=== PATIENT | female | born 1955 | race Caucasian/White ===

== ENCOUNTER 2021-08-20 13:25 | Emergency (ER) | payer OTHER ==
[~2021-08-20] VITALS: Ht 160 cm; Wt 49.9 kg
--- NOTE | 2021-08-21 17:20 | EKG ---
[facility] [address] [facility] [place], [place] [address] Signed Normal sinus rhythm Normal ECG No previous ECGs available Confirmed by CHALO MEDEL MD ([id number]) on 08/21/2021 5:20:23 PM Electronically Signed By: CHALO MEDEL MD 08/21/21 1720 PATIENT NAME: AV LEES Electrocardiogram DATE OF : 59 PHYSICIAN: CHALO MEDEL MD REPORT #: [id number] REPORT IS CONFIDENTIAL AND NOT TO BE RELEASED WITHOUT AUTHORIZATION
== END 2021-08-20 15:27 | disposition home or self-care (01) ==
LOC: ED 13:25
DX: K29.70 Gastritis, unspecified, without bleeding (principal); R07.89 Other chest pain
CPT/HCPCS: 36415; 71045; 80053; 83690; 84484; 85025; 93005; 93010; 99285-25

== ENCOUNTER 2024-02-24 07:20 | Day surgery (SDC) | payer MEDICARE, OTHER ==
[2024-02-20 12:58] VITALS: BP 119/80
[~2024-02-24] VITALS: Ht 160 cm; Wt 53.6 kg
[~2024-02-24 07:20] MED LIST: CEFAZOLIN SODIUM 2 GM/20 ML SYR IV SCH; HEParin SOD (PORCINE) 5,000 UNIT/0.5 ML SYR SUB-Q SCH; HYDROCODON-ACE1 EA10 PO; IBLOOD GLUCOSE TEST STRIP 1 EA TEST VI PRN; LACTATED RINGER'S 1,000 ML IV SCH; LIDOCAINE HCL 1% 5 ML SDV INJ ONE
[2024-02-24 07:40] VITALS: BP 112/82
[2024-02-24] MEDS ORDERED: AREDS EYE VITAMIN PO (07:45)
[2024-02-24] MEDS ORDERED: KETOROLAC TROMETHAMINE 30 MG/ML VIAL ONE (08:21)
[2024-02-24] MEDS ORDERED: propofoL 200 MG/20 ML VIAL ONE (08:21)
[2024-02-24] MEDS ORDERED: ondansetron HCL 4 MG/2 ML VIAL ONE (08:21)
[2024-02-24] MEDS ORDERED: LIDOCAINE HCL 2% 5 ML SDV ONE (08:21)
[2024-02-24] MEDS ORDERED: DEXAMETHASONE SOD PHOS 4 MG/ML VIAL ONE (08:21)
[2024-02-24] MEDS ORDERED: fentaNYL citrate 100 MCG/2 ML VIAL ONE ×2 (09:47→10:52)
[2024-02-24] MEDS ORDERED: MIDAZOLAM HCL 2 MG/2 ML VIAL ONE (09:47)
[2024-02-24] MEDS ORDERED: ePHEDrine sulfate 50 MG/ML AMP ONE (10:23)
[2024-02-24] MEDS ORDERED: dexmedeTOMIDine HCl 200 MCG/2 ML VIAL ONE (10:45)
--- NOTE | 2024-02-24 11:35 | NUR ---
02/24/24 1135 Tammy Maddox 1125- PT PRESENTS TO PACU, SEMI SHARMA POSITION, NON REACTIVE TO STIMULUS. PT HAS OPA IN PLACE, MAINTAINING OWN AIRWAY, 6L O2 PER MASK, BREATHING EVEN AND NON LABORED.ABD SOFT, NON DISTENDED. LR INFUSING TO RFA IV. ALL MONITORS IN PLACE. NO SIGNS OF DISTRESS.
[2024-02-24] MEDS ORDERED: ACETAMINOPHEN 1,000 MG/100 ML VIAL ONE (11:44)
[2024-02-24] MEDS ORDERED: NALOXONE HCL 0.4 MG SYR IV PRN ×2 (11:45)
[2024-02-24] MEDS ORDERED: ondansetron HCL 4 MG/2 ML VIAL IV PRN (11:45)
[2024-02-24] MEDS ORDERED: fentaNYL citrate 50 MCG/ML SDV IV PRN (11:45)
[2024-02-24] MEDS ORDERED: HYDROmorphone HCL 1 MG/ML SYR IV PRN (11:45)
[2024-02-24] MEDS ORDERED: IBUPROFEN 600 MG TAB PO PRN (11:45)
[2024-02-24] MEDS ORDERED: LACTATED RINGER'S 1,000 ML IV SCH (11:45)
[2024-02-24] MEDS ORDERED: ACETAMINOPHEN 500 MG TAB PO PRN (11:45)
[2024-02-24] MEDS ORDERED: IBLOOD GLUCOSE TEST STRIP 1 EA TEST VI PRN (11:45)
[2024-02-24] MEDS ORDERED: OXYCODONE/APAP 7.5/325 TAB PO PRN (11:45)
[2024-02-24] MEDS ORDERED: IBUPROFEN600 MG PO (11:46)
[2024-02-24] MEDS ORDERED: ACETAMINOPHEN500 MG PO (11:46)
[2024-02-24] MEDS ORDERED: OXYCODON-ACETA1 EAC2 PO (11:46)
[2024-02-24] MEDS ORDERED: SEVOFLURANE 250 ML BTL INH ONE (11:49)
[2024-02-24 12:05] VITALS: BP 103/59
--- NOTE | 2024-02-24 12:24 | NUR ---
1205-PT RETURNED TO AAOX3, ANSWERING QUESTIONS APPROPRIATELY, AND ABLE TO MAKE NEEDS KNOWN. VS TAKEN. SAO2 STABLE ON RA AT 94-95%. RR APPEAR EVEN AND UNLABORED AT 16. PTS FRIEND AND IN ROOM UPON PTS RETURN. REPORT RECEIVED FROM CLIENT ONBOARDING ANALYST. SURGICAL SITE VISUALIZED. DRSG CDI. PT REQUESTING TO VISUALIZE DRESSING WELL AND WAS ASSISTED IN LOOKING AT IT. PT SATISFIED BY THIS. IV SITE ASSESSED, NOTED TO BE RUNNING SLOW. TUBING OPENED WIDE AND INFUSING STILL REMAINS SLOW. FLUSHED IV SITE WITH 10 ML NS AND DRIP RATE SPED UP. SLOWED TO ORDERED RATE. PT NOTED TO BE DRINKING ICE WATER UPON ARRIVAL BACK TO . ICE WATER REFILLED AND PT PROVIDED WITH PUDDING AND PILAR CRACKERS. PT RATING PAIN AT 6/10 AND DENIES NAUSEA WHEN ASKED. PTS FRIEND LEFT TO TAKE RX TO A LOCAL PHARMACY TO GET FILLED D/T PT LIVING OUT OF TOWN AND HER LOCAL PHARMACY CLOSING EARLIER TODAY. PTS REMAINS IN ROOM WITH HER. 1219-PO PAIN MEDS GIVEN PER ORDERS FOR PAIN 6/10 IN L BREAST SURGICAL SITE. CALL LIGHT WITHIN PT REACH. ALL QUESTIONS ANSWERED. BED IN LOW POSITION, WHEELS LOCKED. BILAT RAILS IN PLACE FOR SAFETY. LIGHTS DIMMED PER PT REQUEST.
[2024-02-24 13:15] VITALS: BP 95/56
[2024-02-24 13:43] VITALS: BP 107/76
--- NOTE | 2024-02-24 13:45 | NUR ---
1305-INTO PTS ROOM FOR ROUTINE REASSESSMENT. VS TAKEN. IV SITE ASSESSED. PT DENIES NAUSEA WHEN ASKED AND REPORTS PAIN HAS IMPROVED TO 3/10 IN L BREAST AFTER ORAL PAIN MEDS GIVEN EARLIER. SURGICAL SITE VISUALIZED AND NO ACUTE CHANGES NOTED. PT HAS EATEN AND IS TAKING PO FLUIDS WELL. CALL LIGHT WITHIN PT REACH. BED IN LOW POSITION. WHEELS LOCKED, BILAT RAILS IN PLACE. 1320-PT FEELS SHE MAY BE ABLE TO VOID AND AMBULATED TO RESTROOM WITH 1PA FOR SAFETY. PT WAS ABLE TO VOID 350 ML OF CLR, YELLOW URINE. 1325-PT BACK TO ROOM AND HER FRIEND CARLOS RETURNED FROM STORE/PHARMACY. SHE WAS ABLE TO FILL PTS RX AND PICKED PT UP A SNUG FITTING SPORTS BRA PREVIOUSLY DISCUSSED WITH PT FOR SUPPORT/PAIN CONTROL. PT ON EOB WITH PEROSNAL BELONGINGS, CALL LIGHT, AND HER FRIEND AT HER SIDE TO ASSIST HER WITH DRESSING FOR UPCOMING DC. 1330-INTO PTS ROOM FOR DISCHARGE TEACHING. DISCUSS WOUND CARE, ACTIVITY LIMITATIONS, PRESCRIPTIONS, AND INSTRUCTED PT TO CALL DR. HAMMONDS'S OFFICE FIRST THING TUESDAY MORNING TO SCHEDULE A 4 WEEK +/- F/U APPT APPT. PTS FRIEND ALSO PRESENT FOR DC EDUCATION. BOTH VERBALIZED UNDERSTANDING. ALL QUESTIONS ANSWERED. 1340-FRIEND LEFT TO PULL CAR AROUND TO FRONT OF HOSPITAL. IV REMOVED, TIP OBSERVED TO BE INTACT. PRESSURE DRSG APPLIED WITH GAUZE AND COBAN. VS RETAKEN AND BP NOTED TO IMPROVE. WATER REFILLED. ICE PACK PROVIDED FOR CAR RIDE HOME. EDUCATION PROVIDED ON COLD THERAPY SAFETY WITH EMPHASIS ON NOT APPLYING ICE PACK DIRECTLY TO SKIN AND ENSURE BARRIER IS IN PLACE BETWEEN SKIN AND ICE PACK. PT VERBALIZED UNDERSTANDING.
--- NOTE | 2024-02-24 13:50 | NUR ---
PT DISCHARGED FROM DS VIA WC TO PASSENGER SIDE OF FRIENDS VEHICLE. ALL PERSONAL BELONINGS TAKEN WITH PT.
--- NOTE | 2024-02-25 14:42 | OR ---
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 PROCEDURE: Left image-guided partial mastectomy (SAVANAH string cutter technology). ANESTHESIA: General, LMA; Kelli Dangelo, SHAREBROKER and local 3 mL of 0.25% Marcaine with epinephrine. INDICATIONS: This 68-year-old woman is a patient of ELIGIO Dixon and diagnosed with low-grade ductal carcinoma in situ in the left lower outer aspect. The mammogram showed abnormality in the left outer aspect associated with grouped microcalcification at the 3 o'clock position measuring 3.3 cm lateral to the nipple. Ultrasound of the breast confirmed a 5 mm simple cyst at the 1 o'clock position, but the lesion in question laterally, and ultimately found inferiorly underwent core biopsy confirming low-grade ductal carcinoma in situ. Additional changes were noted as well. My clinical examination in the office following biopsy showed an area of thickening corresponding to the area in question, but uncertain as to the certainty of the location, I did recommend a localization approach including SAVANAH string cutter device. Partial excision of breast with postoperative radiation therapy is anticipated. She does understand other options including total mastectomy. The patient does smoke one pack of cigarettes a day and drinks 4-6 alcoholic drinks daily as well. She is admitted at this time to undergo left partial mastectomy with SAVANAH string cutter localization, which occurred yesterday. She understands as does her the risk of bleeding, infection, cosmetic deformity, need for additional treatment and so forth, particularly if pathology should be more advanced than expected. Understanding that, she wished to proceed. FINDINGS: Good localization of the lesion in question was noted in the inferior outer aspect approximately 3 cm from the areolar margin. Wide resection was undertaken and specimen Electronically Signed By: JORDAN HAMMONDS MD 02/25/24 1442 PATIENT NAME: AV LEES OPERATIVE REPORT DATE OF : 59 REPORT #: [id number] PHYSICIAN: JORDAN HAMMONDS MD PCP: CARLOS NGUYEN PA-C REPORT IS CONFIDENTIAL AND NOT TO BE RELEASED WITHOUT AUTHORIZATION [facility] [address] [place], [place] [address] Signed radiograph confirmed the lesion to be incorporated in the excised specimen. It appeared to be in the central portion. So, as to minimize cosmetic deformity, breast pedicle medially and laterally was elevated allowing for parenchymal advancement and closure of the space completely. Good cosmesis was maintained. DESCRIPTION OF PROCEDURE: The patient was brought to the operating room and given a general LMA type anesthetic. Preoperative antibiotic Ancef was given. Sequential compression device stockings were used and heparin subcutaneously administered. The left breast was prepared with a chlorhexidine solution and draped sterilely. Interrogation of the left breast with the SAVANAH string cutter probe identified the area of maximum signal in the inferior lateral aspect of the left breast. A curvilinear incision was made directly over that site and dissection carried through the dermis with electrocautery. Superomedial and inferolateral flaps were elevated widely resecting the area in question with the SAVANAH string cutter probe serving as guide. Excision was taken down to the pectoralis fascia. Prior to explantation of the specimen from the wound, it was marked with a short stitch superiorly and long stitch lateral. A specimen radiograph was subsequently performed, which confirmed the SAVANAH string cutter localizing deflector to be in the central portion of the excised breast. Irrigation was undertaken with sterile water and hemostasis was assured with electrocautery. So as to minimize the defect given her relatively small breast size, a superomedial and inferolateral breast pedicle was elevated from the pectoralis muscle and advanced. The parenchyma was reapproximated with interrupted 2-0 Vicryl. The skin was ultimately closed with a running subcuticular 3-0 Vicryl after application of hemoclips to the cavity itself. These were to zan the site for future radiation interventions. Steri-Strips were applied as was Acticoat dressing. The patient was ultimately extubated and taken to the recovery room in good condition, having suffered no complication. MD JOSE Hunt/MODL /[id number] cc: ELIGIO Dixon Electronically Signed By: JORDAN HAMMONDS MD 02/25/24 1442 PATIENT NAME: AV LEES OPERATIVE REPORT DATE OF : 59 REPORT #: [id number] PHYSICIAN: JORDAN HAMMONDS MD PCP: CARLOS NGUYEN PA-C REPORT IS CONFIDENTIAL AND NOT TO BE RELEASED WITHOUT AUTHORIZATION [address] [address] Signed Copies: ~ Electronically Signed By: JORDAN HAMMONDS MD 02/25/24 1442 PATIENT NAME: AV LEES OPERATIVE REPORT DATE OF : 59 REPORT #: [id number] PHYSICIAN: JORDAN HAMMONDS MD PCP: CARLOS NGUYEN PA-C REPORT IS CONFIDENTIAL AND NOT TO BE RELEASED WITHOUT AUTHORIZATION
--- NOTE | 2024-02-28 17:41 | PATH ---
[facility] [address] [facility] [place], [place] [address] Signed SPECIMEN(S): A LEFT LOWER OUTER BREAST SPECIMEN SOURCE: A. LEFT LOWER OUTER BREAST CLINICAL HISTORY: Left ductal carcinoma in situ, left lower outer breast tissue. FINAL PATHOLOGIC DIAGNOSIS: A. Left breast, lower outer quadrant, lumpectomy: - Ductal carcinoma in situ with the following features; see synoptic report. DCIS OF THE BREAST: Resection Applies To: A SPECIMEN Procedure: Excision (less than total mastectomy) Specimen Laterality: Left TUMOR Tumor Site: Lower outer quadrant Histologic Type: Ductal carcinoma in situ Size (Extent) of DCIS: Estimated size (extent) of DCIS is at least (Millimeters) - 5 mm Number of Blocks with DCIS: 3 Number of Blocks Examined: 31 Architectural Patterns: Cribriform, Solid Nuclear Grade: Grade I (low) Necrosis: Not identified MARGINS Margin Status: All margins negative for DCIS Distance from DCIS to Closest Margin: Less than - 1 mm Closest Margin(s) to DCIS: Medial REGIONAL LYMPH NODES Regional Lymph Node Status: Not applicable (no regional lymph nodes submitted or found) PATHOLOGIC STAGE CLASSIFICATION (pTNM, AJCC 8th Edition) pT Category: pTis (DCIS) pN Category: pN not assigned (no nodes submitted or found) Breast Biomarker Testing Performed on Previous Biopsy: Estrogen Receptor (ER) Status: Positive Percentage of Cells with Nuclear Positivity: 91-100% Progesterone Receptor (PgR) Status: Positive PATIENT NAME: NABEELAV DORAN PATHOLOGY DATE OF : 59 REPORT #: [id number] PHYSICIAN: TAVO PATHOLOGY PCP: CARLOS NGUYEN PA-C REPORT IS CONFIDENTIAL AND NOT TO BE RELEASED WITHOUT AUTHORIZATION [facility] [address] [place], [place] [address] Signed Percentage of Cells with Nuclear Positivity: 71-80% Testing Performed on COMMENT: As part of [employer]' Quality Improvement Program, this case was reviewed by another member of our pathology staff. A diagnostic alert was initiated by Dr. Peterson on 02/28/2024. DDF MICROSCOPIC EXAMINATION: Histologic sections of all submitted blocks are examined by light microscopy. These findings, together with the gross examination, support the pathologic diagnosis. GROSS DESCRIPTION: The specimen, labeled and designated "Nabeel, B, " and designated on the requisition "left lower outer breast tissue," is received in formalin and consists of 26 gram oriented portion of yellow-pineda fibroadipose tissue that is 6.5 x 4.7 x 2.1 cm. A short suture is present and identifies the superior margin; a long suture identifies the lateral margin. The specimen is inked as follows: superior - blue; inferior - green; medial - red; lateral - orange; anterior - yellow; and posterior - black. The specimen is serially sectioned from anterior to posterior into 11 slices revealing approximately 50% of the specimen is a yellow-pineda greasy adipose tissue and 50% is a pink-white dense rubbery fibrous tissue. A metallic senior underwriter detector is identified in slice three. No discrete mass lesions are grossly identified. The specimen is entirely submitted in 31 cassettes. Cassette Summary: (A1-A3) slice one, anterior soft tissue resection margin, perpendicular (A4-A5) slice two (A6-A7) slice three (A8-A10) slice four (A11-A13) slice five (A14-A16) slice six (A17-A19) slice seven (A20-A22) slice eight (A23-A25) slice nine (A26-A28) slice 10 (A29-A31) slice 11, posterior soft tissue resection margin, perpendicular Time of collection: 5 PM February 24, 2024. PATIENT NAME: AV LEES PATHOLOGY DATE OF : 59 REPORT #: [id number] PHYSICIAN: TAVO PATTERSON PCP: CARLOS NGUYEN PA-C REPORT IS CONFIDENTIAL AND NOT TO BE RELEASED WITHOUT AUTHORIZATION [facility] [address] [place], [place] [address] Signed Time into formalin: 5 PM February 24, 2024. Processor load time: 9 AM February 27, 2024. Total fixation time in formalin: 64 hours The ASCO/CAP guidelines related to HER2 and hormone receptor testing in breast specimens have been met and the specimen has been placed in formalin within one hour and fixed in 10% neutral buffered formalin for 6 to 72 hours. Formalin collection time was not received on paperwork. FB FB (under the direct supervision of a pathologist) The Gross Description was prepared using a voice recognition system. The report was reviewed for accuracy; however, sound-alike word errors, addition and/or deletions may occur. If there is any question about this report, please contact Client Services. ADDITIONAL NOTES: Immunohistochemical and/or in situ hybridization studies if performed in this case included appropriate positive controls that reacted as expected. This test was developed and its performance characteristics determined by [employer]. It has not been cleared or approved by the U.S. Food and Drug Administration. The FDA has determined that such clearance or approval is not necessary. This test is used for clinical purposes. It should not be regarded as investigational or for research. [employer] is certified under the Clinical Laboratory Improvement Amendments of 1988 (CLIA) as qualified to perform high complexity clinical laboratory testing. PERFORMING LABORATORY: Technical component was performed by [employer], [address] [place] [id number] (CLIA# [id number]). Professional interpretation was performed by [employer] [facility] - [facility] [place], [address] [place] [address] (CLIA#: [id number]). Diagnostician: Neri Peterson DO Pathologist Electronically Signed 02/28/2024 Copies: PATIENT NAME: AV LEES PATHOLOGY DATE OF : 59 REPORT #: [id number] PHYSICIAN: [employer] PATHOLOGY PCP: ACRLOS NGUYEN PA-C REPORT IS CONFIDENTIAL AND NOT TO BE RELEASED WITHOUT AUTHORIZATION [facility] [address] [place] [address] [place] [address] Signed ~ PATIENT NAME: AV LEES PATHOLOGY DATE OF : 59 REPORT #: [id number] PHYSICIAN: TAVO PATHOLOGY PCP: CARLOS NGUYEN PA-C REPORT IS CONFIDENTIAL AND NOT TO BE RELEASED WITHOUT AUTHORIZATION
== END 2024-02-24 13:50 | disposition home or self-care (01) ==
LOC: DS 07:20
PROVIDERS: ATTEND Surgery
PROC: 0HBU0ZZ Excision of Left Breast, Open Approach (ICD-10-PCS; principal; 2024-02-24 09:30)
DX: D05.12 Intraductal carcinoma in situ of left breast (principal); Z80.3 Family history of malignant neoplasm of breast; Z72.0 Tobacco use
CPT/HCPCS: 00400; 76098; 88307; J0131; J0690; J1100; J1644; J1885; J2003; J2250; J2405; J2704; J3010; J7121